=== PATIENT | female | born 1965 | race Caucasian/White ===

== ENCOUNTER 2017-08-10 10:36 | Outpatient (CLI) | payer BC | END 2017-08-10 21:02 | disposition home or self-care (01) | LOC: SMA 10:36 | PROVIDERS: ATTEND Internal Medicine Hematology | DX: D05.92 Unspecified type of carcinoma in situ of left breast (principal); Z85.3 Personal history of malignant neoplasm of breast | CPT/HCPCS: 76641; G0204 ==

== ENCOUNTER 2018-11-04 09:06 | Outpatient (CLI) | payer BC | END 2018-11-04 21:03 | disposition home or self-care (01) | LOC: SMA 09:06 | PROVIDERS: ATTEND Internal Medicine Hematology | DX: D05.90 Unspecified type of carcinoma in situ of unspecified breast (principal); M89.9 Disorder of bone, unspecified; M94.9 Disorder of cartilage, unspecified; E55.9 Vitamin D deficiency, unspecified; E78.2 Mixed hyperlipidemia; R94.5 Abnormal results of liver function studies; R92.8 Other abnormal and inconclusive findings on diagnostic imaging of breast | CPT/HCPCS: 77066 ==

== ENCOUNTER 2021-04-16 09:50 | Outpatient (CLI) | payer BC | END 2021-04-16 21:08 | disposition home or self-care (01) | LOC: SMA 09:50 | PROVIDERS: ATTEND Family Medicine | DX: C50.919 Malignant neoplasm of unspecified site of unspecified female breast (principal); R92.2 Inconclusive mammogram; R59.0 Localized enlarged lymph nodes | CPT/HCPCS: 77066 ==

== ENCOUNTER 2024-02-08 09:46 | Outpatient (CLI) | payer BC | END 2024-02-08 18:24 | disposition home or self-care (01) | LOC: SMA 09:46 | PROVIDERS: ATTEND Physician Assistant Medical | DX: Z12.31 Encounter for screening mammogram for malignant neoplasm of breast (principal); N64.89 Other specified disorders of breast; N60.02 Solitary cyst of left breast | CPT/HCPCS: 76641; 77067 ==